=== PATIENT | female | born 1995 ===

== ENCOUNTER 2020-03-13 13:08 | Emergency (ER) | payer SELFPAY ==
[~2020-03-13] VITALS: Ht 172.7 cm; Wt 90.9 kg
[2020-03-13 13:58] LABS: EOS # 0.1 (0.04-0.40); EOS % 0.7 % (1.0-5.0); HEMATOCRIT 41.5 % (37.0-47.0); HEMOGLOBIN 13.7 g/dL (12.5-16.0); MEAN CELL VOLUME 86 fl (78-100); MEAN CORPUSCULAR HEMOGLOBIN 29 pg (27-31); MEAN CORPUSCULAR HGB CONC 33 g/dL (33-37); MEAN PLATELET VOLUME 10.6 fl (7.4-10.4); MONO # 0.5 (0.20-0.80); NEU # 4.9 (1.40-6.50); PLATELET COUNT 280 K/mm3 (130-400); RED BLOOD COUNT 4.81 M/mm3 (4.10-5.30); RED CELL DISTRIBUTION WIDTH 13.3 % (11.5-14.5); WHITE BLOOD COUNT 7.5 K/mm3 (4.8-10.8)
[2020-03-13 14:06] LABS: POTASSIUM 4.2 mmol/L (3.5-5.1)
[2020-03-13 14:07] LABS: ALBUMIN 4.4 g/dL (3.5-5.0); CALCIUM 9.2 mg/dL (8.3-10.5)
[2020-03-13 14:09] LABS: TOTAL PROTEIN 7.5 g/dL (6.4-8.3)
[2020-03-13 14:10] LABS: TOTAL BILIRUBIN 0.7 mg/dL (0.2-1.2)
[2020-03-13 14:22] LABS: URINE APPEARANCE CLEAR; URINE BILIRUBIN NEGATIVE (NEGATIVE); URINE BLOOD TRACE (NEGATIVE); URINE COLOR YELLOW; URINE GLUCOSE NEGATIVE (NEGATIVE); URINE KETONE NEGATIVE (NEGATIVE); URINE LEUKOCYTE ESTERASE NEGATIVE (NEGATIVE); URINE NITRATE NEGATIVE (NEGATIVE); URINE PROTEIN(semi-quant) TRACE mg/dL (NEGATIVE); URINE UROBILINOGEN NORMAL (NORMAL); URINE WBC 0-1 /hpf (0-3)
[2020-03-13 14:23] LABS: URINE MUCUS PRESENT (NOT PRESENT)
[2020-03-13] MEDS ORDERED: MACROBID 100 M100 MG PO (15:46)
[2020-03-13 15:51] VITALS: BP 111/71
== END 2020-03-13 15:59 | disposition home or self-care (01) ==
LOC: ED 13:08
PROVIDERS: Nurse Practitioner Primary Care
DX: O26.891 Other specified pregnancy related conditions, first trimester (principal); R10.2 Pelvic and perineal pain; Z3A.01 Less than 8 weeks gestation of pregnancy
CPT/HCPCS: J7030

== ENCOUNTER → 2020-09-15 | Outpatient (CLI) | payer MEDICAID ==
[~2020-09-15] MED LIST: MACROBID 100 M100 MG PO
== END ==
LOC: LAB 11:01
DX: J02.9 Acute pharyngitis, unspecified (principal); Z20.822 Contact with and (suspected) exposure to COVID-19

== ENCOUNTER → 2020-12-31 | Outpatient (CLI) | payer MEDICAID | LOC: LAB 16:53 | DX: U07.1 COVID-19 (principal) ==

== ENCOUNTER → 2021-01-11 | Outpatient (CLI) | payer MEDICAID | LOC: LAB 17:26 | DX: L05.91 Pilonidal cyst without abscess (principal) ==